=== PATIENT | male | born 1955 | race Caucasian/White ===

== ENCOUNTER 2018-06-12 14:53 | Emergency (ER) | payer SELFPAY ==
[2018-06-12] MEDS ORDERED: Sodium Chloride 0.9% 1,000 ML IV SCH (15:15)
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
[2018-06-12] MEDS ORDERED: Thiamine 100 MG in Sodium Chloride 0.9% 100 ML IV ONE (16:12)
[2018-06-12] MEDS ORDERED: Dextrose 5%-Lactated Ringers 1,000 ML IV SCH (16:15)
[2018-06-12] MEDS ORDERED: ALUMINUM HYDROXIDE 320 MG/5 ML PO SCH (18:00)
[2018-06-12] MEDS ORDERED: Aluminum Hydroxide/Magnesium Hydroxide Susp 30 ML Cup PO STA (18:03)
--- NOTE | 2018-06-13 10:31 | CT ---
INDICATION: Confusional state, visual loss left eye. CT HEAD WITHOUT CONTRAST: Spiral 3.75 mm axial sections were obtained through the brain without contrast with sagittal and coronal reconstructions, 06/13/18 - no comparisons. Total exam DLP = 1,296.53 mGy-cm. Calcifications are fairly heavy in the internal carotid arteries. No shift of midline structures was identified. Ventricles are slightly prominent, suggesting a mild degree of central atrophy. A focal area of decreased density is noted in the right parietal lobe white matter, extending from the ventricle towards the campbell matter/white matter interface. Additional low density abnormality in the white matter is noted. Findings are compatible with a mild degree of microvascular disease type changes , although other cause of leukoencephalopathy cannot be entirely excluded. No bleeding site or hematoma or other finding to strongly suggest an acute intracranial abnormality was identified. The orbits appear to be intact. The paranasal sinuses and mastoid air cells appear to be fairly well-aerated. No definite cranial abnormality was identified. IMPRESSION: 1. No definite acute intracranial abnormality. 2. Cerebrovascular disease with white matter changes compatible with a mild degree of microvascular disease. Other cause of leukoencephalopathy, however, cannot be entirely excluded. Report was given in person to Dr. Galvan at 1610 hours on 06/12/18. [facility] HOSPITALDesire
== END 2018-06-12 18:10 | disposition other institution (70) ==
LOC: FB.ED 14:53
DX: I21.4 Non-ST elevation (NSTEMI) myocardial infarction (principal); E87.3 Alkalosis; E87.1 Hypo-osmolality and hyponatremia; G93.40 Encephalopathy, unspecified; Z79.899 Other long term (current) drug therapy
CPT/HCPCS: 36415; 36600; 70450; 80053; 80305-QW; 81001; 82375; 82803; 84484; 85025; 85379; 85651; 86140; 93005; 96361; 96365; 99285-25; A9270-GY; G0480; J3411; J7030; J7042

== ENCOUNTER 2018-09-06 01:38 | Inpatient (IN) | payer SELFPAY ==
[2018-09-06] MEDS ORDERED: Sodium Chloride 0.9% 1,000 ML IV ONE ×2 (02:35)
--- NOTE | 2018-09-06 02:36 | EDM.PDOC ---
ED HPI GENERAL MEDICAL PROBLEM - General Chief Complaint: General Time Seen by Provider: 09/06/18 02:32 Source of Information: Reports: Patient History Limitations: Reports: Altered Mental Status - History of Present Illness INITIAL COMMENTS - FREE TEXT/NARRATIVE: Toney presented because he could not sleep. Is unable to give much history because he seemed confused and unreliable. From his electronic record at [place] , he does have a history of a stroke in June, hypertension and history of alcohol abuse. Tonight, he called the ambulance saying that he could not sleep and eventually drove himself here. He denies any other symptoms. At the time in June, he was also diagnosed with encephalopathy;thought to be due to the stroke. - Related Data Allergies Allergy/AdvReac Type Severity Reaction Status Date / Time No Known Allergies Allergy Verified 06/12/18 15:48 Home Meds: Home Meds Lisinopril/Hydrochlorothiazide [Lisinopril-Hctz 20-25 mg Tab] 1 tab PO DAILY 10/23 [History] Thiamine [Vitamin B-1] 100 mg PO DAILY 06/12/18 [History] Past Medical History HEENT History: Reports: Impaired Vision Cardiovascular History: Reports: Hypertension Gastrointestinal History: Reports: GERD Psychiatric History: Reports: Addiction Other Psychiatric History: ETOH Social & Family History - Family History Family Medical History: Noncontributory - Tobacco Use Smoking Status *Q: Current Every Day Smoker Years of Tobacco use: 10 Packs/Tins Daily: 0.2 - Caffeine Use Caffeine Use: Reports: Coffee, Soda - Recreational Drug Use Recreational Drug Use: No ED ROS GENERAL - Review of Systems Review Of Systems: ROS reveals no pertinent complaints other than HPI. ED EXAM, GENERAL - Physical Exam Exam: See Below Exam Limited By: Altered Mental Status General Appearance: Alert, WD/WN, No Apparent Distress Ear Exam: Bilateral Ear: Auricle Normal, Canal Normal, TM normal Nose: Normal Inspection Throat/Mouth: Normal Inspection Head: Atraumatic, Normocephalic Cardiovascular: Normal Peripheral Pulses, Regular Rate, Rhythm, No Edema, No Gallop, No JVD, No Murmur, No Rub Neurological: Alert, CN II-XII Intact, Inattentive, Confused, Disoriented, Slow to Respond, Memory Loss Remote Events. No: Oriented, Normal Cognition Psychiatric: Normal Affect Skin Exam: Warm Course - Vital Signs Last Recorded V/S: Last Vital Signs Temp 97.6 F 09/06/18 01:38 Pulse 81 09/06/18 01:38 Resp 16 09/06/18 01:38 BP 154/86 H 09/06/18 01:38 Pulse Ox 100 09/06/18 01:38 - Orders/Labs/Meds Orders: Active Orders 24 hr Category Date Time Status Head wo Cont [CT] Stat Exams 09/06/18 01:49 Ordered UA W/MICROSCOPIC [URIN] Stat Lab 09/06/18 01:50 Ordered Labs: Laboratory Tests 09/06/18 09/06/18 09/06/18 Range/Units 02:00 02:00 02:00 WBC 8.6 (4.5-12.0) X10-3/uL RBC 3.26 L (4.30-5.75) x10(6)uL Hgb 11.1 L D (13.5-17.8) g/dL Hct 31.4 D (30.0-51.3) % MCV 96.5 H (80-96) fL MCH 34.0 H (27.7-33.6) pg MCHC 35.2 (32.2-35.4) g/dL RDW 13.0 (11.5-15.5) % Plt Count 374 H (125-369) X10(3)uL MPV 7.2 L (7.4-10.4) fL Neut % (Auto) 68.6 (46-82) % Lymph % (Auto) 19.6 (13-37) % [place] % (Auto) 9.6 (4-12) % Eos % (Auto) 2 (1.0-5.0) % Baso % (Auto) 1 (0-2) % Neut # (Auto) 5.9 (1.6-8.3) # Lymph # (Auto) 1.7 (0.6-5.0) # [place] # (Auto) 0.8 (0.0-1.3) # Eos # (Auto) 0.1 (0.0-0.8) # Baso # (Auto) 0.1 (0.0-0.2) # Sodium 116 L* (135-145) mmol/L Potassium 3.5 (3.5-5.3) mmol/L Chloride 79 L* D (100-110) mmol/L Carbon Dioxide 25 (21-32) mmol/L BUN 13 (7-18) mg/dL Creatinine 1.0 (0.70-1.30) mg/dL Est Cr Clr Drug Dosing 75.61 mL/min Estimated GFR (MDRD) > 60 (>60) BUN/Creatinine Ratio 13.0 (9-20) Glucose 107 (80-116) mg/dL Calcium 9.4 D (8.6-10.2) mg/dL Total Bilirubin 0.6 (0.1-1.3) mg/dL AST 28 H D (5-25) IU/L ALT 37 H (12-36) U/L Alkaline Phosphatase 82 (56-112) IU/L Total Protein 7.3 (6.0-8.0) g/dL Albumin 4.0 (3.2-4.6) g/dL Globulin 3.3 g/dL Albumin/Globulin Ratio 1.2 Ethyl Alcohol < 0.03 (<0.03) % Departure - Departure Time of Disposition: 02:34 Disposition: Refer to Observation Condition: Good Clinical Impression: Hyponatremia - Discharge Information Referrals: PCP,None [Primary Care Provider] - - Problem List & Annotations (1) Hyponatremia SNOMED Code(s): 98877359 Code(s): E87.1 - HYPO-OSMOLALITY AND HYPONATREMIA Status: Acute Current Visit: Yes - Problem List Review Problem List Initiated/Reviewed/Updated: Yes - My Orders Last 24 Hours: My Active Orders 09/06/18 01:49 Head wo Cont [CT] Stat 09/06/18 01:50 UA W/MICROSCOPIC [URIN] Stat - Assessment/Plan Last 24 Hours: My Active Orders 09/06/18 01:49 Head wo Cont [CT] Stat 09/06/18 01:50 UA W/MICROSCOPIC [URIN] Stat Plan: His sodium is 116! he declined CT head. Admit for IVF ,monitor.
[2018-09-06] MEDS ORDERED: Sodium Chloride 0.9% 1,000 ML IV SCH ×2 (02:45→17:30)
[2018-09-06] MEDS ORDERED: Ondansetron 4 MG/2 ML SDV IVPUSH ONE (02:51)
[2018-09-06] MEDS: Sodium Chloride 0.9% 1,000 ML IV SCH ×2 (04:33→10:40)
[2018-09-06] MEDS ORDERED: Acetaminophen 325 MG Tab ONE (05:45)
[2018-09-06] MEDS: Acetaminophen 325 MG Tab PO PRN ×3 (05:51→21:28)
[2018-09-06] MEDS ORDERED: hydrOXYzine HCl 25 MG Tab PO PRN (11:30)
[2018-09-06] MEDS: atorvaSTATin 40 MG Tab PO SCH (11:51)
[2018-09-06] MEDS: Aspirin 325 MG Tab.EC PO SCH (11:51)
[2018-09-06] MEDS: Hydrochlorothiazide/Lisinopril 25-20 MG Tab PO SCH (11:52)
[2018-09-06] MEDS: Thiamine 100 MG Tab PO SCH (11:52)
--- NOTE | 2018-09-06 13:19 | HP ---
ADMISSION DATE: 09/06/2018 CHIEF COMPLAINT: Irritability, insomnia, sleep impairment, and hyponatremia. HISTORY OF PRESENT ILLNESS: Toney Santamaria is a 62-year-old male, admitted through [facility] ER. Presented with complicated insomnia. Takes OTC Sleep-Shoaib medication usually an hour before bedtime, watches TV, turns the lights off at 10. Increasing distractibility, inability to sleep, and a need for sleep, dictated ER visit and intervention. LABORATORY DATA: Laboratory studies of significance revealed hemoglobin 11.1, 10.3 repeat; white count 8600; slightly elevated platelet count. Sodium 116, 117; chloride 79, 82; mildly elevated liver enzymes; and negative troponins. GFR greater than 60. He is admitted for interventions on normal saline. MEDICATIONS: Daily meds include: 1. ASA 325 one p.o. daily, stroke prevention. 2. Atorvastatin 40 mg 1 p.o. daily, hyperlipidemia. 3. Lisinopril/hydrochlorothiazide 20/12.5 one p.o. daily, blood pressure. 4. Thiamine 100 mg one daily. ALLERGIES: No known allergies. 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 Hospitalization workup completed in June 2018. Aspirin on board. He has had a previous right rotator cuff tear. He has had no other operative procedures, hospitalizations, unusual childhood diseases, major injuries, or fractures. 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 He has 6 step-children. Smokes infrequently. Minimal alcohol consumption, though history of alcohol overuse in the past, and no illicit drug use. FAMILY HISTORY: Negative for early heart disease, diabetes mellitus, or inheritable cancers. REVIEW OF SYSTEMS: CONSTITUTIONAL: A bit agitated. EYES: Absent vision in the left eye. EARS: Intact hearing, difficulty in crowds. OROPHARYNX: Intact dentition, daily care. GASTROINTESTINAL: Bowels have been fine. GENITOURINARY: Voiding comfortably. CARDIORESPIRATORY: Denies chest pain. No respiratory difficulty. SKIN: No lesions, eruptions, or moles. ENDOCRINE: No excessive thirst or urination. ALLERGIES: No chronic cough. PHYSICAL EXAMINATION: VITAL SIGNS: 36.0, 78, 134/60, 79 kg, and 97% on room air. GENERAL: Agitated, distractible, inability to stay focused. HEENT: Funduscopic benign. Retinal changes in the left eye. Conjunctivae clear. Bright tympanic membranes. Clear nasal discharge. Mouth and oropharynx clear. Poor dentition. Tongue midline. Good gag reflex. NECK: Benign. Thyroid small. CHEST: Clear in all lung blanco. No adventitious sounds. HEART: No ectopy or murmur. ABDOMEN: Benign. No hepatosplenomegaly. GENITOURINARY: Normal male genitalia. Testes are normal size, shape, and contour. RECTAL: Deferred. EXTREMITIES: Well perfused. NEUROLOGIC: Intact, wandering conversation. LABORATORY STUDIES: As above. ASSESSMENT: 1. Acute confusional state. 2. Complicated insomnia. PLAN: Meds reviewed, timing appropriate. Upon review, through the day, he took 2 L of fluids in the patient care provider hours, may indeed be delusional hyponatremia due to water intoxication. We will monitor fluids through the day, IV normal saline, complementary care and well being. /[id number] [id number]/YAEL
[2018-09-06] MEDS ORDERED: Aluminum Hydroxide/Magnesium Hydroxide Susp 30 ML Cup PO PRN (18:34)
[2018-09-06] MEDS ORDERED: traZODone 50 MG Tab PO SCH (21:00)
--- NOTE | 2018-09-07 08:45 | PCM.PN ---
- General Info Date of Service: 09/07/18 Admission Dx/Problem (Free Text): Patient is without concerns or complaints today. He slept well on trazodone. He says it still makes him tired this morning. He denies confusion, chest pain, shortness of breath. Nurses state that he's been difficult because he won't listen to name for this suggests. He states he doesn't drink much water but then later admits that he drinks water and Listerine to avoid beer. He says an alcoholic. He says he doesn't place enough Salt on his food like his roommate does. - Patient Data Vitals - Most Recent: Last Vital Signs Temp 97.2 F 09/07/18 05:00 Pulse 80 09/06/18 12:00 Resp 18 09/07/18 05:00 BP 119/60 09/07/18 05:00 Pulse Ox 99 09/07/18 05:00 Weight - Most Recent: 176 lb 3 oz I&O - Last 24 Hours: Intake & Output 09/06/18 09/07/18 09/07/18 22:59 06:59 14:59 Intake Total 2509 511 Output Total 2350 200 Balance 159 311 Lab Results Last 24 Hours: Laboratory Results - last 24 hr 09/06/18 09/06/18 09/06/18 Range/Units 04:00 12:50 16:15 Sodium 122 L (135-145) mmol/L Potassium 3.5 (3.5-5.3) mmol/L Chloride 89 L* D (100-110) mmol/L Carbon Dioxide 20 L (21-32) mmol/L BUN 13 (7-18) mg/dL Creatinine 0.9 (0.70-1.30) mg/dL Est Cr Clr Drug Dosing 84.01 mL/min Estimated GFR (MDRD) > 60 (>60) BUN/Creatinine Ratio 14.4 (9-20) Glucose 96 (80-116) mg/dL Calcium 8.6 (8.6-10.2) mg/dL Ur Random Sodium 16 < 5 mmol/L 09/07/18 Range/Units 06:00 Sodium 127 L (135-145) mmol/L Potassium 3.6 (3.5-5.3) mmol/L Chloride 95 L D (100-110) mmol/L Carbon Dioxide 23 (21-32) mmol/L BUN 9 (7-18) mg/dL Creatinine 0.9 (0.70-1.30) mg/dL Est Cr Clr Drug Dosing 84.01 mL/min Estimated GFR (MDRD) > 60 (>60) BUN/Creatinine Ratio 10.0 (9-20) Glucose 105 (80-116) mg/dL Calcium 8.4 L (8.6-10.2) mg/dL Ur Random Sodium mmol/L Med Orders - Current: Current Medications Acetaminophen (Tylenol) 650 mg PO Q4H PRN PRN Reason: Headache Last Admin: 09/06/18 21:28 Dose: 650 mg Al Hydroxide/Mg Hydroxide (Mag-Al Susp) 30 ml PO Q2H PRN PRN Reason: Heartburn Last Admin: 09/06/18 18:43 Dose: 30 ml Aspirin (Ecotrin) 325 mg PO DAILY [facility] Last Admin: 09/06/18 11:51 Dose: 325 mg Atorvastatin Calcium (Lipitor) 40 mg PO DAILY [facility] Last Admin: 09/06/18 11:51 Dose: 40 mg Lisinopril/HCTZ (Lisinopril-Hctz 20-25 Mg) 1 tab PO DAILY [facility] Last Admin: 09/06/18 11:52 Dose: 1 tab Hydroxyzine HCl (Atarax) 25 mg PO Q6H PRN PRN Reason: NAUSEA/VOMITING Last Admin: 09/06/18 11:56 Dose: 25 mg Sodium Chloride (Normal Saline) 1,000 mls @ 50 mls/hr IV ASDIRECTED [facility] Last Admin: 09/06/18 17:34 Dose: 50 mls/hr Thiamine HCl (Vitamin B-1) 100 mg PO DAILY [facility] Last Admin: 09/06/18 11:52 Dose: 100 mg Trazodone HCl (Trazodone) 25 mg PO BEDTIME [facility] Last Admin: 09/06/18 21:24 Dose: 25 mg Discontinued Medications Acetaminophen (Tylenol) Confirm Administered Dose 650 mg .ROUTE .STK-MED ONE Stop: 09/06/18 05:46 Last Admin: 09/06/18 20:01 Dose: Not Given Sodium Chloride (Normal Saline) 1,000 mls @ 999 mls/hr IV .BOLUS ONE Stop: 09/06/18 03:35 Last Admin: 09/06/18 02:56 Dose: 999 mls/hr Sodium Chloride (Normal Saline) 1,000 mls @ 125 mls/hr IV ASDIRECTED [place] Sodium Chloride (Normal Saline) 1,000 mls @ 150 mls/hr IV ASDIRECTED [place] Last Admin: 09/06/18 10:40 Dose: 150 mls/hr Ondansetron HCl (Zofran) 4 mg IVPUSH ONETIME ONE Stop: 09/06/18 02:52 Last Admin: 09/06/18 02:56 Dose: 4 mg - Exam General: Alert, Oriented, Severe Distress Lungs: Normal Respiratory Effort - Problem List & Annotations (1) Hyponatremia SNOMED Code(s): 19119221 Code(s): E87.1 - HYPO-OSMOLALITY AND HYPONATREMIA Status: Acute Current Visit: Yes - Problem List Review Problem List Initiated/Reviewed/Updated: Yes - Plan Plan:: 1. Sodium is came up very nicely. 2. Patient wants to go home. I talked about fluids as I think that's what's causing this. At the decreased the amount of water he drinks. He is unwilling to listen to me. He just wants to add salt to his food. I offered salt tablets and told him to consider stopping the hydromorphone size of this combination blood pressure pill he does not want to do that either. 3. Did talk about his alcohol use and a and he does not want help at this time 4. I stressed that we want to get better and not have to come back in for this condition. He understands this.
--- NOTE | 2018-09-07 08:49 | PCM.DCSUM1 ---
Discharge Summary - Hospital Course Free Text/Narrative:: Hospital course-patient was admitted and placed on normal saline 50 mL an hour and a fluid restriction. And within 24 hours his sodium came up to 127. Patient felt a lot better. The admitting doctor felt that was polydipsia causing this issue. I discussed this with him. Patient drinks mouth wash with water so he can avoid beer. He says his alcoholic and does not want to quit her go to AA. He also states that he does not put enough salt on his food. He has a roommate that does. That's a how he wants to fix this. I did talk to him about salt tablets and fluid restrictions and decreased alcohol. Not really willing to listen. We'll discharge to home on a little fluid restriction, his regular medication and see Dr. Cervantes back in 5 days with a sodium. Brief History: This is a 62-year-old male patient with a history of alcoholism came to the ER in his underwear in the middle the night because he states he could not sleep. He was found to have profound hyponatremia with sodium 116. And he was admitted at that time. Diagnosis: Stroke: No - Discharge Data Discharge Date: 09/07/18 Discharge Disposition: Home, Self-Care 01 Condition: Stable - Discharge Diagnosis/Problem(s) (1) Hyponatremia SNOMED Code(s): 85405928 ICD Code: E87.1 - HYPO-OSMOLALITY AND HYPONATREMIA Status: Acute Current Visit: Yes - Patient Instructions Diet: Regular Diet as Tolerated Fluid Restriction: 1500 mL Activity: As Tolerated Driving: May Drive Today Showering/Bathing: May Shower Notify Provider of: Nausea and/or Vomiting Other/Special Instructions: 1. Recheck with Dr. Cervantes in 1 week with a BMP. - Discharge Plan Home Medications: Home Meds Lisinopril/Hydrochlorothiazide [Lisinopril-Hctz 20-25 mg Tab] 1 tab PO DAILY 10/23 [History] Thiamine [Vitamin B-1] 100 mg PO DAILY 06/12/18 [History] Aspirin [Aspirin EC] 325 mg PO DAILY 09/06/18 [History] atorvaSTATin [Lipitor] 40 mg PO DAILY 09/06/18 [History] Patient Handouts: Coping with Quitting Smoking, Hyponatremia, [id number], Fall Prevention in Hospitals, Adult, Deep Vein Thrombosis Forms: ED Department Discharge Referrals: PCP,None [Primary Care Provider] - - Discharge Summary/Plan Comment DC Time >30 min.: No - Patient Data Vitals - Most Recent: Last Vital Signs Temp 97.2 F 09/07/18 05:00 Pulse 80 09/06/18 12:00 Resp 18 09/07/18 05:00 BP 119/60 09/07/18 05:00 Pulse Ox 99 09/07/18 05:00 Weight - Most Recent: 176 lb 3 oz I&O - Last 24 hours: Intake & Output 09/06/18 09/07/18 09/07/18 22:59 06:59 14:59 Intake Total 2509 511 Output Total 2350 200 Balance 159 311 Lab Results - Last 24 hrs: Laboratory Results - last 24 hr 09/06/18 09/06/18 09/06/18 Range/Units 04:00 12:50 16:15 Sodium 122 L (135-145) mmol/L Potassium 3.5 (3.5-5.3) mmol/L Chloride 89 L* D (100-110) mmol/L Carbon Dioxide 20 L (21-32) mmol/L BUN 13 (7-18) mg/dL Creatinine 0.9 (0.70-1.30) mg/dL Est Cr Clr Drug Dosing 84.01 mL/min Estimated GFR (MDRD) > 60 (>60) BUN/Creatinine Ratio 14.4 (9-20) Glucose 96 (80-116) mg/dL Calcium 8.6 (8.6-10.2) mg/dL Ur Random Sodium 16 < 5 mmol/L 09/07/18 Range/Units 06:00 Sodium 127 L (135-145) mmol/L Potassium 3.6 (3.5-5.3) mmol/L Chloride 95 L D (100-110) mmol/L Carbon Dioxide 23 (21-32) mmol/L BUN 9 (7-18) mg/dL Creatinine 0.9 (0.70-1.30) mg/dL Est Cr Clr Drug Dosing 84.01 mL/min Estimated GFR (MDRD) > 60 (>60) BUN/Creatinine Ratio 10.0 (9-20) Glucose 105 (80-116) mg/dL Calcium 8.4 L (8.6-10.2) mg/dL Ur Random Sodium mmol/L Med Orders - Current: Current Medications Acetaminophen (Tylenol) 650 mg PO Q4H PRN PRN Reason: Headache Last Admin: 09/06/18 21:28 Dose: 650 mg Al Hydroxide/Mg Hydroxide (Mag-Al Susp) 30 ml PO Q2H PRN PRN Reason: Heartburn Last Admin: 09/06/18 18:43 Dose: 30 ml Aspirin (Ecotrin) 325 mg PO DAILY [facility] Last Admin: 09/06/18 11:51 Dose: 325 mg Atorvastatin Calcium (Lipitor) 40 mg PO DAILY [facility] Last Admin: 09/06/18 11:51 Dose: 40 mg Lisinopril/HCTZ (Lisinopril-Hctz 20-25 Mg) 1 tab PO DAILY [facility] Last Admin: 09/06/18 11:52 Dose: 1 tab Hydroxyzine HCl (Atarax) 25 mg PO Q6H PRN PRN Reason: NAUSEA/VOMITING Last Admin: 09/06/18 11:56 Dose: 25 mg Sodium Chloride (Normal Saline) 1,000 mls @ 50 mls/hr IV ASDIRECTED [facility] Last Admin: 09/06/18 17:34 Dose: 50 mls/hr Thiamine HCl (Vitamin B-1) 100 mg PO DAILY [facility] Last Admin: 09/06/18 11:52 Dose: 100 mg Trazodone HCl (Trazodone) 25 mg PO BEDTIME [facility] Last Admin: 09/06/18 21:24 Dose: 25 mg Discontinued Medications Acetaminophen (Tylenol) Confirm Administered Dose 650 mg .ROUTE .STK-MED ONE Stop: 09/06/18 05:46 Last Admin: 09/06/18 20:01 Dose: Not Given Sodium Chloride (Normal Saline) 1,000 mls @ 999 mls/hr IV .BOLUS ONE Stop: 09/06/18 03:35 Last Admin: 09/06/18 02:56 Dose: 999 mls/hr Sodium Chloride (Normal Saline) 1,000 mls @ 125 mls/hr IV ASDIRECTED [facility] Sodium Chloride (Normal Saline) 1,000 mls @ 150 mls/hr IV ASDIRECTED [facility] Last Admin: 09/06/18 10:40 Dose: 150 mls/hr Ondansetron HCl (Zofran) 4 mg IVPUSH ONETIME ONE Stop: 09/06/18 02:52 Last Admin: 09/06/18 02:56 Dose: 4 mg
[2018-09-07] MEDS: atorvaSTATin 40 MG Tab PO SCH (10:07)
[2018-09-07] MEDS: Thiamine 100 MG Tab PO SCH (10:07)
[2018-09-07] MEDS: Hydrochlorothiazide/Lisinopril 25-20 MG Tab PO SCH (10:08)
[2018-09-07] MEDS: Aspirin 325 MG Tab.EC PO SCH (10:08)
[2018-09-07] MEDS: Acetaminophen 325 MG Tab PO PRN (10:35)
== END 2018-09-07 10:40 | disposition home or self-care (01) | DRG 641 ==
LOC: FB.ED 01:38 → UNDOADMIN 02:40 → FB.MS 02:40 → FB.ICU 03:32 → FB.MS 15:49
PROVIDERS: ADMIT Family Medicine; ATTEND Family Medicine
DX: E87.1 Hypo-osmolality and hyponatremia (principal); F10.20 Alcohol dependence, uncomplicated; G47.00 Insomnia, unspecified; R41.0 Disorientation, unspecified; H54.7 Unspecified visual loss; I10 Essential (primary) hypertension; K21.9 Gastro-esophageal reflux disease without esophagitis; F17.210 Nicotine dependence, cigarettes, uncomplicated; Z79.899 Other long term (current) drug therapy; Z86.73 Personal history of transient ischemic attack (TIA), and cerebral infarction without residual deficits
CPT/HCPCS: 36415; 80048; 80053; 81001; 83930; 84300; 84484; 85025; 93005; 96374; 99285-25; A9270-GY; G0480; J2405; J7030; J7040

== ENCOUNTER 2018-09-08 16:40 | Emergency (ER) | payer OTHER ==
[2018-09-08] MEDS ORDERED: LORazepam 2 MG/ML SDV IVPUSH ONE (16:50)
[2018-09-08] MEDS ORDERED: Sodium Chloride 0.9% 1,000 ML IV SCH (17:00)
--- NOTE | 2018-09-08 17:08 | EDM.PDOC ---
ED HPI GENERAL MEDICAL PROBLEM - General Chief Complaint: Neurological Problem Stated Complaint: SEIZURE Time Seen by Provider: 09/08/18 16:50 Source of Information: Reports: Patient, EMS History Limitations: Reports: Altered Mental Status (Patient cannot provide any meaningful history secondary to his altered mental status. He is disoriented to place and time) - History of Present Illness INITIAL COMMENTS - FREE TEXT/NARRATIVE: 62-year-old male who presents to the emergency department via ambulance after reported generalized tonic-clonic seizure. By the time EMS arrived at the scene the patient was not seizing but was in what appeared to be a postictal state. He apparently resides with the disabled gentleman and he is supposedly that disabled gentleman his caregiver the disabled gentleman went outside to smoke a cigarette and when he came back and he found the patient on the floor having shaking movements of his arms and legs and was nonresponsive. The patient seemed to become more responsive to EMS on the way in to the emergency department and there were no more seizures noted by the EMS staff. The patient had no complaints. The patient was recently in the hospital for hyponatremia and confusion of unclear etiology. He was admitted to this hospital on 09/06/2018 for hyponatremia and confusion and was discharged on 09/07/2018 with show correction of his sodium. He is currently unable to give me any history whatsoever. And the above is all the history that I can obtain. There are no other associated signs or symptoms. There are no other modifying factors. - Related Data Allergies Allergy/AdvReac Type Severity Reaction Status Date / Time No Known Allergies Allergy Verified 09/06/18 03:58 Home Meds: Home Meds Lisinopril/Hydrochlorothiazide [Lisinopril-Hctz 20-25 mg Tab] 1 tab PO DAILY 10/23 [History] Thiamine [Vitamin B-1] 100 mg PO DAILY 06/12/18 [History] Aspirin [Aspirin EC] 325 mg PO DAILY 09/06/18 [History] atorvaSTATin [Lipitor] 40 mg PO DAILY 09/06/18 [History] Past Medical History HEENT History: Reports: Impaired Vision Cardiovascular History: Reports: Hypertension Gastrointestinal History: Reports: GERD Psychiatric History: Reports: Addiction Other Psychiatric History: ETOH - Past Surgical History Other Neurological Surgeries/Procedures: has had past stroke like symptoms Other Surgical History Comment: Patient cannot provide me with this information. Social & Family History - Family History Family Medical History: Noncontributory - Caffeine Use Caffeine Use: Reports: Coffee - Alcohol Use Alcohol Use History: Yes Alcohol Use Comment: Drinks alcohol sporadically. He has been drinking mouthwash. ED ROS GENERAL - Review of Systems Review Of Systems: Unable To Obtain (Secondary to the patient's altered mental status initially, but later his mentation cleared and he provided one is below.) Constitutional: Denies: Fever, Chills HEENT: Reports: No Symptoms Respiratory: Denies: Shortness of Breath, Cough Cardiovascular: Denies: Chest Pain GI/Abdominal: Denies: Abdominal Pain, Nausea, Vomiting : Reports: No Symptoms Musculoskeletal: Reports: No Symptoms Skin: Reports: No Symptoms Neurological: Reports: Seizure - Physical Exam Exam: See Below Exam Limited By: No Limitations General Appearance: Alert, Mild Distress, Other (Detached) Eye Exam: Bilateral Eye: EOMI, Normal Inspection Ears: Normal External Exam Nose: Normal Inspection, Normal Mucosa, No Blood Throat/Mouth: Normal Voice, No Airway Compromise, Evidence of Tongue Biting Head Exam: Atraumatic, Normocephalic Neck: Normal Inspection, Supple, Non-Tender, Full Range of Motion Respiratory/Chest: No Respiratory Distress, Lungs Clear, Normal Breath Sounds, No Accessory Muscle Use, Chest Non-Tender Cardiovascular: Normal Peripheral Pulses, Regular Rate, Rhythm, No JVD GI/Abdominal: Normal Bowel Sounds, Soft, Non-Tender, No Mass Neuro Exam (Abbreviated): Alert, CN II-XII Intact, No Motor/Sensory Deficits, Confused, Disoriented Back Exam: Normal Inspection Extremities: Normal Inspection, Normal Range of Motion, Non-Tender, No Pedal Edema, Normal Capillary Refill Skin Exam: Warm, Dry, Intact, Normal Color EKG INTERPRETATION EKG Date: 09/08/18 Time: 17:17 Rhythm: NSR Rate (Beats/Min): 88 Ridott: LAD-Left Ridott Deviation P-Wave: Present QRS: Normal ST-T: Other (Prominent ST-T's but no ST segment elevation) QT: Prolonged Comparison: No Change (From EKG performed on 09/06/2018.) Course - Vital Signs Last Recorded V/S: Last Vital Signs Temp 37.2 C 09/08/18 16:40 Pulse 81 09/08/18 20:12 Resp 18 09/08/18 20:12 BP 98/52 L 09/08/18 20:12 Pulse Ox 96 09/08/18 20:12 - Orders/Labs/Meds Labs: Laboratory Tests 09/08/18 09/08/18 09/08/18 Range/Units 17:05 17:05 17:05 WBC 10.0 (4.5-12.0) X10-3/uL RBC 2.65 L (4.30-5.75) x10(6)uL Hgb 9.0 L (13.5-17.8) g/dL Hct 25.2 L (30.0-51.3) % MCV 94.9 (80-96) fL MCH 33.9 H (27.7-33.6) pg MCHC 35.7 H (32.2-35.4) g/dL RDW 13.2 (11.5-15.5) % Plt Count 312 (125-369) X10(3)uL MPV 7.3 L (7.4-10.4) fL Neut % (Auto) 85.7 H (46-82) % Lymph % (Auto) 6.8 L (13-37) % [place] % (Auto) 5.9 (4-12) % Eos % (Auto) 1 (1.0-5.0) % Baso % (Auto) 1 (0-2) % Neut # (Auto) 8.5 H (1.6-8.3) # Lymph # (Auto) 0.7 (0.6-5.0) # [place] # (Auto) 0.6 (0.0-1.3) # Eos # (Auto) 0.1 (0.0-0.8) # Baso # (Auto) 0.1 (0.0-0.2) # POC VBG pH (7.31-7.41) POC VBG pCO2 (41-51) mmHG POC VBG HCO3 (23-28) mmol/L POC VBG Total CO2 (24-29) mmol/L POC VBG Base Excess (-2-3) mmol/L Sodium 126 L (135-145) mmol/L Potassium 3.4 L (3.5-5.3) mmol/L Chloride 92 L (100-110) mmol/L Carbon Dioxide 22 (21-32) mmol/L BUN 12 (7-18) mg/dL Creatinine 1.2 (0.70-1.30) mg/dL Est Cr Clr Drug Dosing TNP Estimated GFR (MDRD) > 60 (>60) BUN/Creatinine Ratio 10.0 (9-20) Glucose 121 H (80-116) mg/dL Calcium 8.8 (8.6-10.2) mg/dL Magnesium 1.7 L (1.8-2.5) mg/dL Total Bilirubin 0.6 (0.1-1.3) mg/dL AST 109 H D (5-25) IU/L ALT 44 H D (12-36) U/L Alkaline Phosphatase 64 (56-112) IU/L Troponin I (<0.017-0.056) ng/mL Total Protein 6.6 (6.0-8.0) g/dL Albumin 3.3 (3.2-4.6) g/dL Globulin 3.3 g/dL Albumin/Globulin Ratio 1.0 Urine Color (YELLOW) Urine Appearance (CLEAR) Urine pH (5.0-6.5) Ur Specific [place] (1.010-1.025) Urine Protein (NEGATIVE) mg/dL Urine Glucose (UA) (NORMAL) mg/dL Urine Ketones (NEGATIVE) mg/dL Urine Occult Blood (NEGATIVE) Urine Nitrite (NEGATIVE) Urine Bilirubin (NEGATIVE) Urine Urobilinogen (NEGATIVE) mg/dL Ur Leukocyte Esterase (NEGATIVE) Urine RBC (0-5) Urine WBC (0-5) Ur Squamous Epith Cells (NS,R,O) Urine Bacteria (NS) Urine Opiates Screen (NEGATIVE) Ur Oxycodone Screen (NEGATIVE) Ur Propoxyphene Screen (NEGATIVE) Ur Barbituates Screen (NEGATIVE) Ur Tricyclics Screen (NEGATIVE) Ur Phencyclidine Scrn (NEGATIVE) Ur Amphetamine Screen (NEGATIVE) Urine MDMA Screen (NEGATIVE) U Benzodiazepines Scrn (NEGATIVE) U Cocaine Metab Screen (NEGATIVE) U Marijuana (THC) Screen (NEGATIVE) Ethyl Alcohol < 0.03 (<0.03) % 09/08/18 09/08/18 09/08/18 Range/Units 17:05 18:05 18:47 WBC (4.5-12.0) X10-3/uL RBC (4.30-5.75) x10(6)uL Hgb (13.5-17.8) g/dL Hct (30.0-51.3) % MCV (80-96) fL MCH (27.7-33.6) pg MCHC (32.2-35.4) g/dL RDW (11.5-15.5) % Plt Count (125-369) X10(3)uL MPV (7.4-10.4) fL Neut % (Auto) (46-82) % Lymph % (Auto) (13-37) % [place] % (Auto) (4-12) % Eos % (Auto) (1.0-5.0) % Baso % (Auto) (0-2) % Neut # (Auto) (1.6-8.3) # Lymph # (Auto) (0.6-5.0) # [place] # (Auto) (0.0-1.3) # Eos # (Auto) (0.0-0.8) # Baso # (Auto) (0.0-0.2) # POC VBG pH 7.34 (7.31-7.41) POC VBG pCO2 39.1 L (41-51) mmHG POC VBG HCO3 21.1 L (23-28) mmol/L POC VBG Total CO2 22 L (24-29) mmol/L POC VBG Base Excess -5 L (-2-3) mmol/L Sodium (135-145) mmol/L Potassium (3.5-5.3) mmol/L Chloride (100-110) mmol/L Carbon Dioxide (21-32) mmol/L BUN (7-18) mg/dL Creatinine (0.70-1.30) mg/dL Est Cr Clr Drug Dosing Estimated GFR (MDRD) (>60) BUN/Creatinine Ratio (9-20) Glucose (80-116) mg/dL Calcium (8.6-10.2) mg/dL Magnesium (1.8-2.5) mg/dL Total Bilirubin (0.1-1.3) mg/dL AST (5-25) IU/L ALT (12-36) U/L Alkaline Phosphatase (56-112) IU/L Troponin I < 0.017 L (<0.017-0.056) ng/mL Total Protein (6.0-8.0) g/dL Albumin (3.2-4.6) g/dL Globulin g/dL Albumin/Globulin Ratio Urine Color Yellow (YELLOW) Urine Appearance Clear (CLEAR) Urine pH 5.0 (5.0-6.5) Ur Specific [place] 1.020 (1.010-1.025) Urine Protein Negative (NEGATIVE) mg/dL Urine Glucose (UA) 250 H (NORMAL) mg/dL Urine Ketones 15 H (NEGATIVE) mg/dL Urine Occult Blood Large H (NEGATIVE) Urine Nitrite Negative (NEGATIVE) Urine Bilirubin Negative (NEGATIVE) Urine Urobilinogen Normal (NEGATIVE) mg/dL Ur Leukocyte Esterase Negative (NEGATIVE) Urine RBC 0-5 (0-5) Urine WBC 0-5 (0-5) Ur Squamous Epith Cells Occasional (NS,R,O) Urine Bacteria Rare H (NS) Urine Opiates Screen (NEGATIVE) Ur Oxycodone Screen (NEGATIVE) Ur Propoxyphene Screen (NEGATIVE) Ur Barbituates Screen (NEGATIVE) Ur Tricyclics Screen (NEGATIVE) Ur Phencyclidine Scrn (NEGATIVE) Ur Amphetamine Screen (NEGATIVE) Urine MDMA Screen (NEGATIVE) U Benzodiazepines Scrn (NEGATIVE) U Cocaine Metab Screen (NEGATIVE) U Marijuana (THC) Screen (NEGATIVE) Ethyl Alcohol (<0.03) % 09/08/18 Range/Units 18:47 WBC (4.5-12.0) X10-3/uL RBC (4.30-5.75) x10(6)uL Hgb (13.5-17.8) g/dL Hct (30.0-51.3) % MCV (80-96) fL MCH (27.7-33.6) pg MCHC (32.2-35.4) g/dL RDW (11.5-15.5) % Plt Count (125-369) X10(3)uL MPV (7.4-10.4) fL Neut % (Auto) (46-82) % Lymph % (Auto) (13-37) % [place] % (Auto) (4-12) % Eos % (Auto) (1.0-5.0) % Baso % (Auto) (0-2) % Neut # (Auto) (1.6-8.3) # Lymph # (Auto) (0.6-5.0) # [place] # (Auto) (0.0-1.3) # Eos # (Auto) (0.0-0.8) # Baso # (Auto) (0.0-0.2) # POC VBG pH (7.31-7.41) POC VBG pCO2 (41-51) mmHG POC VBG HCO3 (23-28) mmol/L POC VBG Total CO2 (24-29) mmol/L POC VBG Base Excess (-2-3) mmol/L Sodium (135-145) mmol/L Potassium (3.5-5.3) mmol/L Chloride (100-110) mmol/L Carbon Dioxide (21-32) mmol/L BUN (7-18) mg/dL Creatinine (0.70-1.30) mg/dL Est Cr Clr Drug Dosing Estimated GFR (MDRD) (>60) BUN/Creatinine Ratio (9-20) Glucose (80-116) mg/dL Calcium (8.6-10.2) mg/dL Magnesium (1.8-2.5) mg/dL Total Bilirubin (0.1-1.3) mg/dL AST (5-25) IU/L ALT (12-36) U/L Alkaline Phosphatase (56-112) IU/L Troponin I (<0.017-0.056) ng/mL Total Protein (6.0-8.0) g/dL Albumin (3.2-4.6) g/dL Globulin g/dL Albumin/Globulin Ratio Urine Color (YELLOW) Urine Appearance (CLEAR) Urine pH (5.0-6.5) Ur Specific [place] (1.010-1.025) Urine Protein (NEGATIVE) mg/dL Urine Glucose (UA) (NORMAL) mg/dL Urine Ketones (NEGATIVE) mg/dL Urine Occult Blood (NEGATIVE) Urine Nitrite (NEGATIVE) Urine Bilirubin (NEGATIVE) Urine Urobilinogen (NEGATIVE) mg/dL Ur Leukocyte Esterase (NEGATIVE) Urine RBC (0-5) Urine WBC (0-5) Ur Squamous Epith Cells (NS,R,O) Urine Bacteria (NS) Urine Opiates Screen Negative (NEGATIVE) Ur Oxycodone Screen Negative (NEGATIVE) Ur Propoxyphene Screen Negative (NEGATIVE) Ur Barbituates Screen Negative (NEGATIVE) Ur Tricyclics Screen Negative (NEGATIVE) Ur Phencyclidine Scrn Negative (NEGATIVE) Ur Amphetamine Screen Negative (NEGATIVE) Urine MDMA Screen Negative (NEGATIVE) U Benzodiazepines Scrn Negative (NEGATIVE) U Cocaine Metab Screen Negative (NEGATIVE) U Marijuana (THC) Screen Negative (NEGATIVE) Ethyl Alcohol (<0.03) % Meds: Medications Discontinued Medications Generic Name Dose Route Start Last Admin Trade Name Chen PRN Reason Stop Dose Admin Sodium Chloride 1,000 mls @ 100 mls/hr 09/08/18 17:00 09/08/18 17:02 Normal Saline IV 100 mls/hr ASDIRECTED [place] Administration Magnesium Sulfate 2 gm/ 104 mls @ 100 mls/hr 09/08/18 17:55 09/08/18 19:13 Dextrose/Water IV 09/08/18 18:57 Not Given ONETIME ONE Magnesium Sulfate 2 gm/ Premix 50 mls @ 150 mls/hr 09/08/18 19:10 09/08/18 19 :10 IV 09/08/18 19:29 150 mls/hr ONETIME ONE Administration Lorazepam 1 mg 09/08/18 16:50 09/08/18 16:54 Ativan IVPUSH 09/08/18 16:51 1 mg ONETIME ONE Administration - Radiology Interpretation Free Text/Narrative:: Chest x-ray shows no acute disease. CT scan of head without contrast shows no acute pathology per the radiologist. - Re-Assessments/Exams Free Text/Narrative Re-Assessment/Exam: 09/08/18 18:32: Patient is awake and alert. He is oriented to person place and time. He was very surprised to hear that he had a seizure today he denies any pain present other than some mild soreness to his tongue and that in itself was enough to convince him that he did have a seizure because he has some abrasions on his tongue. He denies any headache. He is moving his arms and legs appropriately. He is wanting to go home at present. The patient's blood tests show some evidence of alcohol related liver disease (the patient does have a history of abuse). His sodium is still low at 126 but it is at the level when he was discharged yesterday. His chest x-ray and CT showed no acute problems. I will have the nursing staff ambulate the patient and if he is able to do this without problems, I will discharge him home. He did have a seizure today and I have instructed him that he should not drive a motor vehicle until cleared to do so by his primary doctor 09/08/18 18:58: Patient ambulated fairly well. He was slightly unsteady but states he feels pretty well. No dizziness. No weakness. He was able to provide us with urine and we are awaiting the results of that. The plan will be for him to be discharged home though. 09/08/18 19:30: The patient's urine was unremarkable. He is awake and alert. He is able to converse appropriately and answers all questions appropriately. He is ambulatory without assistance and he wishes to go home. He'll be discharged Departure - Departure Time of Disposition: 19:35 Disposition: Home, Self-Care 01 Condition: Fair (Stable) Clinical Impression: Seizure, Transient alteration of awareness, Alcoholic liver disease, Hyponatremia - Discharge Information Instructions: Alcoholic Liver Disease, [id number], Magnesium Sulfate injection, Seizure, Adult, [id number] Referrals: John Darling MD [Physician] - Forms: ED Department Discharge Additional Instructions: You had a seizure today. I suspect that this was related to your alcohol and mouth wash use and overdrinking of water. Her sodium was also still low. Stop drinking alcohol and mouthwash. Restrict your fluid intake to no more than 1 L in a day. Takes salt tablets daily for the next week. Eat well-balanced meals. Follow-up with Dr. Darling this next week. The cause you had a seizure, you are not allowed to drive a motor vehicle until you are cleared to do so by your primary doctor. Back to the emergency department for recurrent seizures, vomiting, fever, trouble breathing or any other concerning sign or symptom.
[2018-09-08] MEDS ORDERED: Magnesium Sulfate/Water 2 GM in Premix Bag 1 BAG IV ONE (19:10)
== END 2018-09-08 20:15 | disposition home or self-care (01) ==
LOC: FB.ED 16:40
DX: R56.9 Unspecified convulsions (principal); R40.4 Transient alteration of awareness; K70.9 Alcoholic liver disease, unspecified; E87.1 Hypo-osmolality and hyponatremia; I10 Essential (primary) hypertension; Z79.82 Long term (current) use of aspirin
CPT/HCPCS: 36415; 70450; 71045; 80053; 80305; 81001; 82803; 83735; 84484; 85025; 93005; 96361; 96365; 96375; 99285; G0480; J2060; J3475; J7030; 93010; 99284

== ENCOUNTER 2018-09-09 16:08 | Emergency (ER) | payer OTHER ==
[2018-09-09] MEDS ORDERED: LORazepam 2 MG/ML SDV ONE (16:12)
[2018-09-09] MEDS ORDERED: Sodium Chloride 0.9% 1,000 ML IV ONE (16:21)
[2018-09-09] MEDS ORDERED: LORazepam 2 MG/ML SDV IVPUSH ONE (16:21)
[2018-09-09] MEDS ORDERED: levETIRAcetam 1,000 MG in Sodium Chloride 0.9% 100 ML IV ONE (16:21)
[2018-09-09] MEDS ORDERED: Lidocaine 2% HCl 6 ML JEL.PF.APP ONE (16:24)
--- NOTE | 2018-09-09 16:26 | EDM.PDOC ---
ED HPI GENERAL MEDICAL PROBLEM - General Stated Complaint: ALTERED MENTAL STATIS Time Seen by Provider: 09/09/18 16:10 Source of Information: Reports: EMS History Limitations: Reports: Altered Mental Status (Patient has altered mental status and cannot provide me with any information. All of the initial history that I obtain from the EMS personnel. I did see this patient yesterday after a seizure.) - History of Present Illness INITIAL COMMENTS - FREE TEXT/NARRATIVE: 62-year-old male who presents via ambulance with altered mental status. According to EMS the patient had an argument with his (his girlfriend is in treatment out of town so apparently this occurred over the phone) and according to his brother, he started drinking after this. It should be noted that the patient drinks mouthwash and this was suspected to be what he was drinking. Apparently, his brother found him at his house and he was "talking out of his head" and seemed to be somewhat agitated. He called 911 because he was concerned that his brother was having a stroke and when EMS arrived they found the patient to symmetric and his facial features and movement to have word salad and gibberish type talk and was not responding appropriately to verbal stimuli. He did respond appropriately to noxious stimuli and he did have similar purposeful movements of his arms and legs. An IV was established and the patient was transported to the emergency department for evaluation. It should be noted that I did see the patient yesterday post seizure he was quite confused post seizure. This lasted for a good 1-2 hours and his sensorium cleared. He was ambulatory without any problems. He ate supper here and he was conversing and able to give an accounting of his day and was able to give history of his past and current situation. He essentially normalized. He had been admitted a few days prior secondary to hyponatremia and altered mental status. The hyponatremia corrected over a day and and his mental status normalized and the patient was discharged home at the patient's request. Apparently the patient has an alcohol abuse history but also drinks mouthwash and also drinks lots of water and this was felt to be the cause of his hyponatremia. He can give me no history today. This is all the history that I can obtain about circumstances today. There is no history of trauma. His blood sugar was 120 mg/dL here. His O2 saturation was 100% on room air. There are no other associated signs or symptoms. There are no other modifying factors. Onset: Today Duration: Constant Location: Reports: Other (Altered mental status) Quality: Reports: Other (Not applicable) Severity: Moderate (to severe) Improves with: Reports: None Worsens with: Reports: None Treatments [employer]: Reports: Other (see below) (Nothing) - Related Data Allergies Allergy/AdvReac Type Severity Reaction Status Date / Time No Known Allergies Allergy Verified 09/06/18 03:58 Home Meds: Home Meds Lisinopril/Hydrochlorothiazide [Lisinopril-Hctz 20-25 mg Tab] 1 tab PO DAILY 10/23 [History] Thiamine [Vitamin B-1] 100 mg PO DAILY 06/12/18 [History] Aspirin [Aspirin EC] 325 mg PO DAILY 09/06/18 [History] atorvaSTATin [Lipitor] 40 mg PO DAILY 09/06/18 [History] Past Medical History HEENT History: Reports: Impaired Vision Cardiovascular History: Reports: Hypertension Gastrointestinal History: Reports: GERD Neurological History: Reports: Seizure Other Neuro History: new onset Psychiatric History: Reports: Addiction Other Psychiatric History: ETOH; patient also admits to drinking mouthwash and has been doing this recently to try to not drink alcohol. - Past Surgical History Other Neurological Surgeries/Procedures: has had past stroke like symptoms Other Surgical History Comment: Patient cannot provide me with this information. Social & Family History - Family History Family Medical History: Noncontributory - Caffeine Use Caffeine Use: Reports: Coffee - Alcohol Use Alcohol Use History: Yes Alcohol Use Comment: Patient has history of alcohol abuse. He also has a history of mouthwash abuse. 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 ED ROS GENERAL - Review of Systems Review Of Systems: Unable To Obtain (The patient cannot provide this due to his altered mental status. Therefore, it is unobtainable.) - Physical Exam Exam: See Below Exam Limited By: No Limitations General Appearance: Alert, WD/WN, Moderate Distress, Other (Altered mental status with gibberish talk and some agitation.) Eye Exam: Bilateral Eye: PERRL, Other (Sclera are anicteric) Ears: Normal External Exam Nose: Normal Inspection, Normal Mucosa, No Blood Throat/Mouth: Evidence of Tongue Biting, Other (Dry mucous membranes) Head Exam: Atraumatic, Normocephalic Neck: Normal Inspection, Non-Tender, Other (He appears to move his head area) Respiratory/Chest: No Respiratory Distress, Lungs Clear, Normal Breath Sounds, No Accessory Muscle Use Cardiovascular: Normal Peripheral Pulses, Regular Rate, Rhythm, No JVD GI/Abdominal: Normal Bowel Sounds, Soft, Non-Tender, No Distention, No Mass (Male) Exam: Normal Inspection, Circumcised Neuro Exam (Abbreviated): Alert, No Motor/Sensory Deficits, Other (Patient is not verbally responsive. He speaks in gibberish and repetitive words. He moves his arms and legs somewhat but not to command and not with purpose. He responds appropriately to noxious stimuli with withdrawing.) Extremities: Normal Inspection, Normal Range of Motion, No Pedal Edema, Normal Capillary Refill Skin Exam: Warm, Dry, Intact, Normal Color, No Rash EKG INTERPRETATION EKG Date: 09/09/18 Time: 17:13 Rhythm: NSR Rate (Beats/Min): 90 [place]: LAD-Left [place] Deviation P-Wave: Present QRS: Normal ST-T: Normal QT: Prolonged NE/PQ Interval: Borderline prolonged NE interval Comparison: No Change (No real change from previous EKG performed on 09/06/2018.) Course - Vital Signs Last Recorded V/S: Last Vital Signs Temp 36.3 C 09/09/18 19:25 Pulse 73 09/09/18 16:10 Resp 19 09/09/18 16:10 BP 139/74 09/09/18 16:10 Pulse Ox 100 09/09/18 16:10 - Orders/Labs/Meds Orders: Active Orders 24 hr Category Date Time Status EKG Documentation Completion [RC] ASDIRECTED Care 09/09/18 16:20 Active Insert Urinary Catheter [OM.PC] Q24H Care 09/09/18 16:30 Ordered Urinary Catheter Assessment [RC] QSHIFT Care 09/09/18 16:23 Active Chest 1V Frontal [CR] Stat Exams 09/09/18 17:26 Taken Head wo Cont [CT] Stat Exams 09/09/18 16:22 Taken EKG 12 Lead [EK] Routine Ther 09/09/18 16:17 Ordered Labs: Laboratory Tests 09/09/18 09/09/18 09/09/18 Range/Units 16:35 16:35 16:35 WBC 8.1 (4.5-12.0) X10-3/uL RBC 2.85 L (4.30-5.75) x10(6)uL Hgb 9.6 L (13.5-17.8) g/dL Hct 27.5 L (30.0-51.3) % MCV 96.3 H (80-96) fL MCH 33.7 H (27.7-33.6) pg MCHC 35.0 (32.2-35.4) g/dL RDW 13.3 (11.5-15.5) % Plt Count 387 H (125-369) X10(3)uL Sodium 130 L (135-145) mmol/L Potassium 3.2 L (3.5-5.3) mmol/L Chloride 93 L (100-110) mmol/L Carbon Dioxide 23 (21-32) mmol/L BUN 15 (7-18) mg/dL Creatinine 1.3 (0.70-1.30) mg/dL Est Cr Clr Drug Dosing TNP Estimated GFR (MDRD) 56 L (>60) BUN/Creatinine Ratio 11.5 (9-20) Glucose 120 H (80-116) mg/dL Calcium 8.9 (8.6-10.2) mg/dL Magnesium 2.0 (1.8-2.5) mg/dL Total Bilirubin 0.5 (0.1-1.3) mg/dL AST 135 H D (5-25) IU/L ALT 56 H D (12-36) U/L Alkaline Phosphatase 67 (56-112) IU/L Troponin I < 0.017 L (<0.017-0.056) ng/mL Total Protein 7.4 (6.0-8.0) g/dL Albumin 3.7 (3.2-4.6) g/dL Globulin 3.7 g/dL Albumin/Globulin Ratio 1.0 Urine Color (YELLOW) Urine Appearance (CLEAR) Urine pH (5.0-6.5) Ur Specific [place] (1.010-1.025) Urine Protein (NEGATIVE) mg/dL Urine Glucose (UA) (NORMAL) mg/dL Urine Ketones (NEGATIVE) mg/dL Urine Occult Blood (NEGATIVE) Urine Nitrite (NEGATIVE) Urine Bilirubin (NEGATIVE) Urine Urobilinogen (NEGATIVE) mg/dL Ur Leukocyte Esterase (NEGATIVE) Urine RBC (0-5) Urine WBC (0-5) Ur Squamous Epith Cells (NS,R,O) Urine Bacteria (NS) Urine Opiates Screen (NEGATIVE) Ur Oxycodone Screen (NEGATIVE) Ur Propoxyphene Screen (NEGATIVE) Ur Barbituates Screen (NEGATIVE) Ur Tricyclics Screen (NEGATIVE) Ur Phencyclidine Scrn (NEGATIVE) Ur Amphetamine Screen (NEGATIVE) Urine MDMA Screen (NEGATIVE) U Benzodiazepines Scrn (NEGATIVE) U Cocaine Metab Screen (NEGATIVE) U Marijuana (THC) Screen (NEGATIVE) Ethyl Alcohol (<0.03) % 09/09/18 09/09/18 09/09/18 Range/Units 16:35 16:40 16:40 WBC (4.5-12.0) X10-3/uL RBC (4.30-5.75) x10(6)uL Hgb (13.5-17.8) g/dL Hct (30.0-51.3) % MCV (80-96) fL MCH (27.7-33.6) pg MCHC (32.2-35.4) g/dL RDW (11.5-15.5) % Plt Count (125-369) X10(3)uL Sodium (135-145) mmol/L Potassium (3.5-5.3) mmol/L Chloride (100-110) mmol/L Carbon Dioxide (21-32) mmol/L BUN (7-18) mg/dL Creatinine (0.70-1.30) mg/dL Est Cr Clr Drug Dosing Estimated GFR (MDRD) (>60) BUN/Creatinine Ratio (9-20) Glucose (80-116) mg/dL Calcium (8.6-10.2) mg/dL Magnesium (1.8-2.5) mg/dL Total Bilirubin (0.1-1.3) mg/dL AST (5-25) IU/L ALT (12-36) U/L Alkaline Phosphatase (56-112) IU/L Troponin I (<0.017-0.056) ng/mL Total Protein (6.0-8.0) g/dL Albumin (3.2-4.6) g/dL Globulin g/dL Albumin/Globulin Ratio Urine Color Yellow (YELLOW) Urine Appearance Slightly cloudy (CLEAR) Urine pH 5.0 (5.0-6.5) Ur Specific [place] 1.020 (1.010-1.025) Urine Protein Negative (NEGATIVE) mg/dL Urine Glucose (UA) 50 H (NORMAL) mg/dL Urine Ketones Negative (NEGATIVE) mg/dL Urine Occult Blood Large H (NEGATIVE) Urine Nitrite Negative (NEGATIVE) Urine Bilirubin Moderate H (NEGATIVE) Urine Urobilinogen 4 H (NEGATIVE) mg/dL Ur Leukocyte Esterase Negative (NEGATIVE) Urine RBC 5-10 H (0-5) Urine WBC 0-5 (0-5) Ur Squamous Epith Cells Rare (NS,R,O) Urine Bacteria Few H (NS) Urine Opiates Screen Negative (NEGATIVE) Ur Oxycodone Screen Negative (NEGATIVE) Ur Propoxyphene Screen Negative (NEGATIVE) Ur Barbituates Screen Negative (NEGATIVE) Ur Tricyclics Screen Negative (NEGATIVE) Ur Phencyclidine Scrn Negative (NEGATIVE) Ur Amphetamine Screen Negative (NEGATIVE) Urine MDMA Screen Negative (NEGATIVE) U Benzodiazepines Scrn Positive H (NEGATIVE) U Cocaine Metab Screen Negative (NEGATIVE) U Marijuana (THC) Screen Negative (NEGATIVE) Ethyl Alcohol < 0.03 (<0.03) % Meds: Medications Discontinued Medications Generic Name Dose Route Start Last Admin Trade Name Freq PRN Reason Stop Dose Admin Levetiracetam 1,000 mg/ Sodium 110 mls @ 400 mls/hr 09/09/18 16:21 09/09/18 17:05 Chloride IV 09/09/18 16:35 400 mls/hr ONETIME ONE Administration Sodium Chloride 1,000 mls @ 999 mls/hr 09/09/18 16:21 09/09/18 16:50 Normal Saline IV 09/09/18 17:21 125 mls/hr .BOLUS ONE Infusion Lidocaine HCl 5 ml 09/09/18 16:24 09/09/18 17:12 Glydo .XX 09/09/18 16:25 Not Given ONETIME ONE Lorazepam Confirm 09/09/18 16:12 09/09/18 16:43 Ativan Administered 09/09/18 16:13 Not Given Dose 2 mg .ROUTE .STK-MED ONE Lorazepam 1 mg 09/09/18 16:21 09/09/18 17:09 Ativan IVPUSH 09/09/18 16:22 1 mg ONETIME ONE Administration - Radiology Interpretation Free Text/Narrative:: Portable chest x-ray shows no acute abnormality. CT scan of his head shows no acute abnormality and no change from yesterday's CT scan per the radiologist. - Re-Assessments/Exams Free Text/Narrative Re-Assessment/Exam: 09/09/18 17:30: The patient's laboratory tests are essentially unchanged from yesterday. His sodium has risen from 126 to 130 today. His troponin is negative again today. His alcohol is negative again today. His EKG is unchanged from yesterday. His urine tox screen was positive for benzodiazepines but he received Ativan yesterday and today. Patient's mental status is unchanged. He has had no response to the Ativan or the Keppra. He continues with gibberish speak and repetitive words with no purposeful movement of his arms or legs. His blood pressure, pulse and respiratory rate and O2 saturation are unchanged. He has been pulling and neurologically stable. The patient's mental status cleared yesterday after a period of time and therefore I am going to watch him for a little while longer to see if his mental status clears as long as he remains vitally and neurologically stable. 09/09/18 18:45: The patient is had no change in his mental status. He remains with a normal pulse, normal blood pressure and an O2 saturation of 100% on room air. At this point he will need admission and he will need services which are not available at [facility]. He has been transferred to [facility] in [place] before for similar type issues and also for non- STEMI in the past. Therefore I will discuss his case with the doctors at [facility] in [place]. 09/09/18 19:10: I discussed the patient's case with Dr. Gonzáles, hospitalist at , and he eventually referred me to Dr. Sumner, ED physician at [facility] in [place], and the patient will be accepted (Dr. Sumner has accepted the patient in transfer) with the patient retransferred to the emergency department initially. The patient will be transferred via [facility] ambulance service. Departure - Departure Time of Disposition: 19:45 Disposition: DC/Tfer to [facility] 02 Condition: Critical Clinical Impression: Acute encephalopathy, Hyponatremia - Discharge Information Referrals: PCP,Unknown [Ordering Only Provider] - - My Orders Last 24 Hours: My Active Orders 09/09/18 16:17 EKG 12 Lead [EK] Routine 09/09/18 16:20 EKG Documentation Completion [RC] ASDIRECTED 09/09/18 16:22 Head wo Cont [CT] Stat 09/09/18 16:23 Urinary Catheter Assessment [RC] QSHIFT 09/09/18 16:30 Insert Urinary Catheter [OM.PC] Q24H 09/09/18 17:26 Chest 1V Frontal [CR] Stat - Assessment/Plan Last 24 Hours: My Active Orders 09/09/18 16:17 EKG 12 Lead [EK] Routine 09/09/18 16:20 EKG Documentation Completion [RC] ASDIRECTED 09/09/18 16:22 Head wo Cont [CT] Stat 09/09/18 16:23 Urinary Catheter Assessment [RC] QSHIFT 09/09/18 16:30 Insert Urinary Catheter [OM.PC] Q24H 09/09/18 17:26 Chest 1V Frontal [CR] Stat
== END 2018-09-09 19:55 ==
LOC: FB.ED 16:08
DX: G93.40 Encephalopathy, unspecified (principal); E87.1 Hypo-osmolality and hyponatremia; I10 Essential (primary) hypertension; Z79.82 Long term (current) use of aspirin; Z79.899 Other long term (current) drug therapy
CPT/HCPCS: 36415; 51702; 70450; 71045; 80053; 80305; 81001; 83735; 84484; 85027; 93005; 96361; 96365; 96375; 99285; G0480; J1953; J2060; J7030; 93010